=== PATIENT | female | born 1990 | race African-American/Black ===

== ENCOUNTER 2024-01-05 19:36 | Observation (INO) ==
--- OUTSIDE RECORDS SUMMARY | 2024-01-05 19:41 | External Medical Summary | Continuity of Care Document ---
Author Name Unknown Organization [facility] Roseanna RIVAS Address [address] [place] [address] [address] BOB [phone] Care Team Providers Care Vacuum System Tester Name Role Phone Ismael Baldwin Primary Care Physician [id number] [id number]): [facility] [address] [place] [address], [address] [address] [phone] Encounter Diagnosis 32 week prematurity(Discharge Diagnosis) - 01/02/24 32 weeks gestation of (Discharge Diagnosis) - 01/02/24 Discharge Disposition: Home or Self Care Attending Physician: MD Ralph, Jessica Ellsworth Referring Physician: MD Price Lauren A Allergies, Adverse Reactions, Alerts No Known Medication Allergies Assessment and Plan Extracted from: Title:[facility] Clinic Note Author:MD Morales, Peter Parham ate:01/02/24 Patient is a 33yo at 32w1d by LMP c/w early US, ADRIANA 02/26/24 c/b: ?Abnormal stomach - (11/26) detailed [facility] US notes normal appearing stomach and mild polyhydramnios (8.1cm DVP) along with LGA fetus (93%) - Discussed with patient that structural defects such as TEF or esophageal atresia are difficult to definitively rule out using ultrasound but the index for suspicion is low given normal appearing stomach and high normal fluid. - she has declined cFDNA testing - do not recommend MRI or echo at this time - if future US notes concern will further evaluate (01/01) repeat scan not done today, can consider completing inpatient cHTN on meds - patient was previously on lisinopril and switched to labetalol 100mg BID on OB intake at [facility] - denies hx of cardiac or renal issues - baseline serum Cr of 0.7 noted on outside labs - would recommend baseline CBC and CMP with 3rd tri labs and Urine Prot/Creatinine ratio - baseline screening EKG recommended - continue current anti-HTN therapy - recommend serial growth US and testing to begin at 32 weeks - continue low dose aspirin - At this time would recommend delivery at 38 weeks if not earlier (01/01) elevated BP as above along with symptoms concerning for PET - patient's partner to bring her to L&D for evaluation now. Gave info to L&D team and MFM fellow. Hx IVDU on suboxone - managed by physician in [facility], has access to care - current dose 8mg daily - continue - plan for NICU consult in later given risk for OLN and need for observation hx of hepatitis C - Hep C Ab reactive, Hep C VL 400k on NOB labs - has been referred to GI but appointment pending - repeat hep C VL and LFT'swith 3rd tri labs --> discussed ~5% risk of vertical transmission that cannot be mitigated by delivery - should f/u with GI post delivery to discuss maternal treatment options Large RIGO fibroid - 13.9x12.3x12.3 cm RIGO fibroid obscuring cervix noted - discussed is likely not a candidate for a safe vaginal delivery and would recommend a primary which might require midline vertical access along with a classical for safe delivery. - remains at risk for PTL/PPROM and hemorrhage with delivery - patient agreeable with above plan and is electing for a primary at [facility]. [1] Medications aspirin 81 mg oral delayed release tablet Start: 11/05/23 2:02:00 PM EDT, 1 tab, PO, Daily Start Date: 11/05/23 Status: Ordered Flagyl 500 mg oral tablet Start: 01/04/24 12:06:00 PM EDT, 1 tab, PO, q12h, Disp# 12 tab, Refills: 0, Take one tablet every 12 hours for the next six days, [facility] Start Date: 01/04/24 Status: Ordered iron supp. Start: 11/05/23 2:02:00 PM EDT, iron supp. Start Date: 11/05/23 Status: Ordered labetalol 100 mg oral tablet Start: 01/04/24 3:51:00 PM EDT, 1 tab, PO, q8h Start Date: 01/04/24 Status: Ordered NIFEdipine 30 mg oral tablet, extended release Start: 01/04/24 12:05:00 PM EDT, 1 tab, PO, Daily, Disp# 90 tab, Refills: 3, [facility]acy[facility] Start Date: 01/04/24 Status: Ordered Multivitamins with Vitamin B Complex, Vitamin C, Minerals and L- Methylfolate oral capsule Start: 11/05/23 2:01:00 PM EDT, 1 gummie, PO, Daily Start Date: 11/05/23 Status: Ordered Suboxone Start: 11/05/23 2:01:00 PM EDT, 8-2mg, SL, Daily Start Date: 11/05/23 Status: Ordered Mental Status 01/02/24 Barriers to Learning one year None evide nt Mandatory Health Literacy Documentation Yes Health Literacy Communication Barriers N ever Primary Language Arabic Problem List Condition Confirmation Course Effective Dates Status H ealth Status Informant Anxiety Confirmed Active Depression Confirmed Active History of hepatitis C Confirmed Active History of intravenous drug use in remission Confirmed Active AMA (advanced maternal age) multigravida 35+ Confirmed Active Polyhydramnios Confirmed Active Chronic hypertension in Confirmed Active Confirmed 05/22/23 Active Uterine fibroid in Confirmed Active Diagnosis Diagnosis Type Effective Dates Health Status Clinical Service Informant 32 week prematurity Discharge Diagnosis 01/02/24 32 weeks gestation of Discharge Diagnosis 01/02/24 Non-Specified Vital Signs Most recent to oldest [Reference Range]: 1 2 Patient Weight 80.6 kg (01/02/24 1:59 PM) Blood Pressure 154/94mmHg (01/02/24 2:33 PM) 164/93mmHg (01/02/24 1:59 PM) Social History Social History Type Response Smoking Status Current some day lig ht smoker Sex Female Sex Representation Female (finding) [facility] Outpt Note * MD Morales, Peter: MODIFY MD Morales, Peter: MODIFY, PERFORM MD Morales, Peter: PERFORM Event Display: [facility] Outpt Note Authored Date: [id number] Chief Complaint 32 1/7wks History of Present Illness patient briefly seen as her BP was elevated and she states she "doesnt feel well" she did not take her morning dose of labetalol 100mg BID until now has had on and off headaches, not currently spots previously, none now feels out of breath more often no N/V she also feels she has gained ~7lbs of weight in past week, with significant LE swelling no other obstetric complaints endorses movement NST was overall reassuring but not reactive Visit Vital Signs/Measurements Systolic Blood Bmulywfc030 mmHg Diastolic Blood Ftyemlnx77 mmHg Patient Krxhmo60.6 kg Review of Systems Vaginal Bleeding: [No] Contractions: [No] Leaking Fluid: [No] Movement: [Yes] Physical Exam Vitals & Measurements BP:164/93 WT:80.600kg(Dosing) WT:80.6kg able to speak in full sentences, no acute distress abd soft, NT breathing comfortably LE - 2+ b/l edema Assessment/Plan Patient is a 33yo at 32w1d by LMP c/w early US, ADRIANA 02/26/24 c/b: ?Abnormal stomach - (11/26) detailed [facility] US notes normal appearing stomach and mild polyhydramnios (8.1cm DVP) along with LGA fetus (93%) - Discussed with patient that structural defects such as TEF or esophageal atresia are difficult todefinitively rule out using ultrasound but the index for suspicion is low given normal appearing stomach and high normal fluid. - she has declined cFDNA testing - do not recommend MRI or echo at this time - if future US notes concern will further evaluate (01/01) repeat scan not done today, can consider completing inpatient cHTN on meds - patient was previously on lisinopril and switched to labetalol 100mg BID on OB intake at [facility] - denies hx of cardiac or renal issues - baseline serum Cr of 0.7 noted on outside labs - would recommend baseline CBC and CMP with 3rd tri labs and Urine Prot/Creatinine ratio - baseline screening EKG recommended - continue current anti-HTN therapy - recommend serial growth US and testing to begin at 32 weeks - continue low dose aspirin - At this time would recommend delivery at 38 weeks if not earlier (01/01) elevated BP as above along with symptoms concerning for PET - patient's partner to bring her to L&D for evaluation now. Gave info to L&D team and MFM fellow. Hx IVDU on suboxone - managed by physician in [facility], has access to care - current dose 8mg daily - continue - plan for NICU consult in later given risk for LON and need for observation hx of hepatitis C - Hep C Ab reactive, Hep C VL 400k on NOB labs - has been referred to GI but appointment pending - repeat hep C VL and LFT'swith 3rd tri labs --> discussed ~5% risk of vertical transmission that cannot be mitigated by delivery - should f/u with GI post delivery to discuss maternal treatment options Large RIGO fibroid - 13.9x12.3x12.3 cm RIGO fibroid obscuring cervix noted - discussed is likely not a candidate for a safe vaginal delivery and would recommend a primary which might require midline vertical access along with a classical for safe delivery. - remains at risk for PTL/PPROM and hemorrhage with delivery - patient agreeable with above plan and is electing for a primary at [facility]. [1] Delivery Plan TBD based on above eval Follow Up sent to L&D and report called in - f/u to be decided based on evaluation discussed that NST was not reactive in outpatient testing - needs evaluation inpatient Patient reviewed with Dr. Ralph Nielsen MD FACOG MFM attending Note Patient seen and evaluated with Dr. Nielsen. Plan of care reviewed and discussed with patient. Agree with above assessment, evaluation and plan. Juli is a 33yo @ 32 1/7wks with CHTN on Labetalol 100mg BID, on subutex maintenance and large RIGO fibroid. Today her NST was NR but her BPs were noted to be 150s-160s/90s. She is also reporting spots, headaches and LW swelling. She also states that she has not taken her AM dose of Labetalol. At this time, recommend further evaluation for superimposed preeclampsia vs exacerbation of CHTN. Will also need prolonged monitoring. Followup ultrasound for growth will also be needed prior to discharge. The above was relayed to the inpatient team and OB logistics called. Patient's partner is present and able to drive her to the hospital. Jessica Rosas MD LMP/EGA/ADRIANA Gestational Age (EGA) and ADRIANA * Note: EGA calculated as of 01/02/2024 ADRIANA:02/26/2024EGA*:32 weeks 1 day Type:AuthoritativeMethodDate:05/22/2023 Method:Last Menstrual Period(05/22/2023) Confirmation:Confirmed Description:-- Comments:-- Entered by:RASTA Benjamin Jacqueline on 11/27/2023 Other ADRIANA Calculations for this : No additional ADRIANA calculations have been recorded for this OB History History(0,0,0,0) No previous pregnancies history have been recorded Problem List/Past Medical History Ongoing Medications aspirin(aspirin 81 mg oral delayed release tablet), 81 mg= 1 tab, PO, Daily buprenorphine-naloxone(Suboxone), 8-2mg, SL, Daily labetalol, 100 mg, PO, bid multivitamin, ( Multivitamins with Vitamin B Complex, Vitamin C, Minerals and L-Methylfolate oral capsule), 1 gummie, PO, Daily unknown medication(iron supp.) Allergies No Known Medication Allergies Social History Smoking Status Unknown if ever smoked [1]MFM reconsult; MD Morales, Peter 11/27/2023 15:08 EDT Electronic Signature on File Electronically Reviewed/Signed by: Pteer Nielsen MD Author Signature Dt/Tm:01/02/2024 02:45 PM Resident Division of Maternal Medicine Electronically Reviewed/Signed by: Jessica Rosas MD Cosigner Signature Dt/Tm: 01/02/2024 04:04 PM Division of Maternal Medicine [facility] Patient Care team information Care Team Personnel Name: DO Baldwin Fidelis O Position: Referring DIRECT Member Role: Primary Care Provider Address: [address] [place] [address] [place] Care Team Related Persons Name: GEORGIE RAHMAN
[2024-01-05 20:03] VITALS: BP 147/80
[2024-01-05] MEDS ORDERED: OXYTOCIN 30 UNITS/NSS 30 UNITS/500 ML BAG IV PRN (20:15)
[2024-01-05] MEDS ORDERED: LIDOCAINE 1% LOCAL 20 ML VIAL INFIL PRN (20:15)
[2024-01-05 20:21] VITALS: RESP 20; TEMP 99.5
[2024-01-05] MEDS: TERBUTALINE SULFATE 1 MG/ML VIAL SQ ONE (20:40)
[2024-01-05] MEDS ORDERED: SODIUM CHLORIDE 0.9% 250 ML IV PRN (20:52)
[2024-01-05] MEDS: LACTATED RINGER'S 1,000 ML IV PRN (21:08)
[2024-01-05 21:12] LABS: Creatinine Urine Random 145.6 mg/dl; Protein Creatinine Ratio Urine 0.3 (0-0.2); Total Protein Urine Random 50.4 mg/dl (0-11.9)
[2024-01-05 21:27] LABS: Amphetamines+Metham, Urine Pos (Neg); Barbiturates, Urine Neg (Neg); Benzodiazepine, Urine Neg (Neg); Cocaine, Urine Neg (Neg); Fentanyl, Urine Neg (Neg); MDMA (Ecstacy), Urine Pos (Neg); Marijuana, Urine Neg (Neg); Methadone, Urine Neg (Neg); Opiate, Urine Neg (Neg); Phencyclidine, Urine Neg (Neg)
[2024-01-05 21:37] LABS: Hematocrit (blood only) 29.8 % (37.0-47.0); Hemoglobin 10.2 g/dl (12.0-16.0); Mean Corpuscular Hemoglobin 29.6 pg (25.0-34.0); Mean Corpuscular Hgb Conc 34.2 g/dL (32.0-36.0); Mean Corpuscular Volume 86.4 fL (80.0-100.0); Nucleated RBC # (auto) 0.03 K/uL (0.00-0.12); Nucleated RBC % (auto) 0.2 %; Platelet Count 262 K/uL (130-400); RDW Coefficient of Variation 13.2 % (11.5-14.5); RDW Standard Deviation 40.3 fL (36.4-46.3); Red Blood Count 3.45 M/uL (4.20-5.40); White Blood Count 17.72 K/ul (4.8-10.8)
[2024-01-05 21:40] LABS: Albumin Globulin Ratio 0.8 (0.9-2); Albumin Level 2.9 gm/dl (3.4-5.0); Bilirubin,Total 0.4 mg/dl (0.2-1.0); Calcium 8.1 mg/dl (8.6-10.3); Creatinine Clr Calc Pharmacy 118.4 ml/min; Globulin 3.8 gm/dl (2.5-4.0); Potassium 3.5 mmol/L (3.5-5.1); Total Protein 6.7 gm/dl (6.0-8.3)
[2024-01-05] MEDS: TERBUTALINE SULFATE 1 MG/ML VIAL ONE (22:04)
[2024-01-05] MEDS: BETAMETH SOD PHOS/ACETATE IA 6 MG/ML IM STA (22:05)
[2024-01-05 22:32] VITALS: PULSE 75; O2SAT 99
--- NOTE | 2024-01-05 22:39 | History & Physical Report ---
Date of Service January 05, 2024 Assessment & Plan (1) contractions: (2) Decreased movement: Plan On arrival, multiple attempts were made at blood draw and IV start, therefore patient was given 1 dose of subcu terbutaline for contractions and oral Gatorade for hydration. Preeclampsia labs drawn, normal blood work with normal platelets, LFTs, creatinine. Urine protein creatinine ratio 0.3. IV team placed IV under ultrasound guidance. IV fluids given, LR bolus. After bolus, 125 mL/h. Celestone given for lung maturity. I called consult to maternal- medicine at [facility], who agreed for transfer of patient. Accepting doctor is Dr. Jones. [facility] transfer service will arrange transport. Given the distance to [facility] and patient condition, I am recommending transport by helicopter. Discussed consent with patient, she agrees. Admission and Anticipated Discharge Date Admission Date: January 05, 2024 History of Present Illness Chief Complaint: Decreased movement Primary Care Provider: Ismael Baldwin DO 33-year-old G1, P0 at 32 weeks 4 days with history of chronic hypertension on labetalol and new prescription of nifedipine, large uterine fibroid, hepatitis C, Suboxone use, advanced maternal age presented [facility] with complaint of decreased movement. She had recently transferred her care from [facility] physician [facility] to [facility] maternal- medicine for the remainder of because of the location of her lower uterine segment fibroid, necessitating classical for delivery. She was at [facility] visit last , was sent to labor and delivery for preeclampsia workup and monitoring, was admitted for 3 days and discharged home last night. She did not receive betamethasone during her hospital stay at [facility]. Throughout the day today, she has not felt movement, and presented to [facility] with this complaint. She is not feeling contractions, however does report she has some abdominal cramping. No vaginal bleeding, no leaking of fluid. She reports no headache, no vision changes, no right upper quadrant pain, but does have bilateral lower extremity swelling, as well as mild swelling in her hands. She has a history of intravenous drug use, initially reported no recent use, however agreed to a urine drug screen [facility] which showed positive results for methamphetamines and ecstasy. Further discussion with her after this result led to her telling me that she used this on the drive home yesterday. She states this is not a common thing for her, however she has had increased life stressors including the loss of her job recently. Allergies Allergy/AdvReac Type Severity Reaction Status Date / Time No Known Allergies Allergy Verified 01/05/24 19:53 Home Medications Medication Instructions Recorded Confirmed Type albuterol inhalation PRN 08/09/23 12/24/23 History sxzyrucw-bst-Cv-FA 1 tab PO DAILY 08/09/23 01/05/24 History [ Plus] aspirin 81 mg capsule 81 mg PO DAILY 01/05/24 01/05/24 History buprenorphine HCl 8 mg sublingual 8 mg sublingual DAILY 01/05/24 01/05/24 History tablet ferrous sulfate 27 mg iron tablet 27 mg PO DAILY 01/05/24 01/05/24 History labetalol 100 mg tablet 100 mg PO Q8 01/05/24 01/05/24 History Patient History Medical History (Updated 01/05/24 @ 22:38 by Maria Elena Byrd DO) IV drug abuse 10-15 years ago Hypertension Depression Anxiety Hepatitis C Surgical History S/P tooth extraction Had all teeth extracted- Has removable dentures (upper/lower) Family History Mother Degenerative disorder of bone Denies family history of Ovarian cancer Breast cancer Colorectal cancer Social History Smoking Status: Current every day smoker Tobacco Type: Cigarettes Cigarettes Per Day: 2; Do You Dip or Chew Tobacco: No; Hx Alcohol Use: No Hx Substance Use: No Preferred Language: Kiswahili Communication Ability: Effective Sheet Sewer Required: No Beliefs That Will Affect Care: None marital status: Single marital status details: Domenic Chambers ([phone]) [phone] Current Living Situation: Other Current Living Situation Comment: friend, housing situation up in the air right now, has eviction notice current occupational status: employed current occupation: [employer] Feels Safe at Home: Yes Safety Concerns: Feels Safe At This Time Assistive Devices: None Review of Systems All systems reviewed & are unremarkable except as noted in HPI & below Physical Exam Physical Exam: tracing on arrival with minimal variability and nonrecurrent variable decelerations. After administration of IV fluids, tracing remains minimal variability with no accelerations, one variable deceleration. Tocometer showing regular contractions every 1 to 2 minutes vs uterine irritability. Patient is not feeling these. Sterile speculum exam shows closed cervix, no pooling. No bleeding. SVE cervix is closed, thick, high Limited bedside ultrasound performed, cephalic presentation. Biophysical profile 08/30 for total BPP/NST 09/01. +2 tone, +2 amniotic fluid (4 cm pocket), +2 breathing motion. No movement. Constitutional: WD/WN, vitals as above Respiratory: normal respiratory effort, lungs clear to auscultation no respiratory distress Cardiovascular: Rate/Rhythm: regular rate and regular rhythm Gastrointestinal (Abdomen): Inspection/Auscultation: abdomen normal to inspection Percussion/Palpation: abdomen soft; abdomen nontender Gravid. No s/s chorio or abruption. Skin: no rashes, warm and dry Psychiatric: A+Ox3, euthymic affect Results & Data Vital Signs (Past 12 Hours) Vital Signs Temp Pulse Resp BP Pulse Ox 01/05/24 22:21 100 01/05/24 22:21 83 01/05/24 22:19 87 L 01/05/24 22:19 79 01/05/24 22:16 98 01/05/24 22:16 83 01/05/24 22:11 100 01/05/24 22:11 88 01/05/24 22:06 100 01/05/24 22:06 84 01/05/24 22:01 100 01/05/24 22:01 82 01/05/24 21:56 100 01/05/24 21:56 80 01/05/24 21:51 100 01/05/24 21:51 81 01/05/24 21:46 100 01/05/24 21:46 84 01/05/24 21:41 100 01/05/24 21:41 74 01/05/24 21:36 100 01/05/24 21:36 78 01/05/24 21:32 89 L 01/05/24 21:32 84 01/05/24 21:31 100 01/05/24 21:31 82 01/05/24 21:26 100 01/05/24 21:26 84 01/05/24 21:21 100 01/05/24 21:21 83 01/05/24 21:16 78 100 01/05/24 21:11 72 100 01/05/24 21:06 82 100 01/05/24 21:01 83 100 01/05/24 20:56 84 100 01/05/24 20:51 85 100 01/05/24 20:46 85 100 01/05/24 20:41 82 100 01/05/24 20:01 85 147/80 H 01/05/24 19:59 37.5 C 20 Coding Level of Care Code 60453 OP VST EST MOD 30 MIN Diagnoses contractions O47.00 Decreased movement O36.8190
[2024-01-09 17:42] LABS: Amphetamine Urine, Confirm 1139 ng/mL (<250); MDA negative; MDEA negative; MDMA (Ecstasy) Urine, Confirm negative; Methamphetamine, Ur Confirm 8341 ng/mL (<250)
== END 2024-01-05 23:10 | disposition short-term general hospital (02) | DRG 831 ==
LOC: OPB 19:36 → 4S1 19:38 → INTOOBSV 20:15 → 4S1 20:15